=== PATIENT | male | born 1965 | race Caucasian/White ===

== ENCOUNTER 2017-02-15 18:03 | Emergency (ER) | payer OTHER ==
[~2017-02-15] VITALS: Ht 182.9 cm; Wt 83.9 kg
--- NOTE | 2017-02-15 18:15 | NUR ---
CLEANSED THE RIGHT PINKY WITH STERILE NS
[2017-02-15] MEDS ORDERED: LEVOTHYROXINE 175 MCG TABLET PO (18:16)
[2017-02-15] MEDS ORDERED: HYDROCORTISONE 10 MG TABLET (18:16)
--- NOTE | 2017-02-15 18:47 | NUR ---
AT THE BEDSIDE.
[2017-02-15] MEDS ORDERED: TDAP DIPH,PERTUSS,TET VAC/PF 0.5 ML DISP.SYRIN IM ONE ×2 (19:00→19:22)
--- NOTE | 2017-02-15 19:00 | NUR ---
SBAR REPORT TO MICHELE CORREA FROM REGISTRY.
[2017-02-15] MEDS ORDERED: HYDROMORPHONE 1 MG/1 ML DISP.SYRIN IM ONE (19:15)
[2017-02-15] MEDS ORDERED: NEOMY/BACITRA/POLYMYXIN B OINT UD PACKET TP ONE ×3 (19:15→19:54)
[2017-02-15] MEDS ORDERED: ONDANSETRON 4 MG/2 ML VIAL IM ONE (19:15)
[2017-02-15] MEDS ORDERED: HYDROCODONE/APAP 5-325MG TABLET PO ONE (19:15)
--- NOTE | 2017-02-15 19:26 | NUR ---
PT MEDICATED. TOLERATED WELL.
--- NOTE | 2017-02-15 19:33 | NUR ---
FINGER IRRIGATED WITH NORMAL SALINE AND DRESSED.
[2017-02-15] MEDS ORDERED: HYDROCODONE/APAP 5-325MG TABLET ONE (19:38)
[2017-02-15] MEDS ORDERED: ONDANSETRON ODT 4 MG TAB.RAPDIS ONE (19:38)
[2017-02-15] MEDS ORDERED: ONDANSETRON ODT 4 MG TAB.RAPDIS SL ONE (20:00)
--- NOTE | 2017-02-15 20:10 | NUR ---
Patient was revaluated by DR alvino BAXTER to [place].
--- NOTE | 2017-02-15 20:11 | NUR ---
Patient given written and verbal discharge instructions. Patient verbalizes understanding of instructions. Patient is ambulatory with steady gait. Refuses offer of [facility] placement. Patient given list of available shelters in surrounding area. Tube gauze in place CMS WNL. No active bleeding at this time.
== END 2017-02-15 20:18 | disposition home or self-care (01) ==
LOC: ER 18:04
DX: S69.91XA Unspecified injury of right wrist, hand and finger(s), initial encounter (principal); E03.9 Hypothyroidism, unspecified; Z90.49 Acquired absence of other specified parts of digestive tract; W23.0XXA Caught, crushed, jammed, or pinched between moving objects, initial encounter; Y93.89 Activity, other specified; Y92.810 Car as the place of occurrence of the external cause; Y99.8 Other external cause status
CPT/HCPCS: 73130; 90715; A4217; A4663; Q0162